=== PATIENT | male | born 1990 | race Caucasian/White ===

== ENCOUNTER 2021-09-06 10:22 | Emergency (ER) | payer SELFPAY ==
[~2021-09-06] VITALS: Ht 157.5 cm; Wt 61.2 kg
--- NOTE | 2021-09-06 10:39 | NUR ---
[id number] FROM STREETS, FOUND UNRESPONSIVE BY FRIENDS. NARCAN 4MG GIVEN MANAGER GIFT [id number] FROM STREETS, FOUND UNRESPONSIVE BY FRIENDS. NARCAN 4MG GIVEN MANAGER GIFT. IN ROOM AIR AND DENIES SOB. RESPIRATION REGULAR AND UNLABORED. OXYGEN SATURATION IN ROOM AIR IS AT 98%. ATTACHED TO THE MONITOR. WARM BLANKET PROVIDED FOR COMFORT. WILL CONTINUE TO MONITOR THE PATIENT.
[2021-09-06] MEDS ORDERED: NALO1DIS2 IM (13:54)
--- NOTE | 2021-09-06 15:02 | NUR ---
IV removed. Catheter intact and site benign. Pressure and 4x4 applied to site. No bleeding noted.
--- NOTE | 2021-09-06 15:02 | NUR ---
Patient discharged to home in stable condition. Written and verbal after care instructions given. Patient verbalizes understanding of instruction.
[2021-09-06 15:03] VITALS: BP 116/72
--- NOTE | 2021-09-06 15:03 | NUR ---
Patient given written and verbal discharge instructions. Patient verbalizes understanding of instructions. Patient is ambulatory with steady gait. Refuses offer of halfway placement. Patient given list of available shelters in surrounding area.Patient discharged in stable condition. Written and verbal after care instructions given. Patient verbalizes understanding of instruction.
== END 2021-09-06 15:04 | disposition home or self-care (01) ==
LOC: ER 10:45
DX: T40.2X1A Poisoning by other opioids, accidental (unintentional), initial encounter (principal); Z59.00 Homelessness unspecified; Y92.89 Other specified places as the place of occurrence of the external cause